=== PATIENT | female | born 1980 | race Caucasian/White ===

== ENCOUNTER 2020-06-30 17:10 | Emergency (ER) | payer OTHER, SELFPAY ==
--- NOTE | 2020-06-30 17:20 | ED.GENADULT ---
HPI - General Adult General Chief complaint: Dental/Oral Stated complaint: Dental Time Seen by Provider: 06/30/20 17:20 Source: patient Mode of arrival: ambulatory Limitations: no limitations History of Present Illness HPI narrative: 39-year-old female patient presents to the [facility] with complaints of swelling to the right cheek for the past several days. Patient states she went to [facility] ER yesterday and was given penicillin VK antibiotics. Patient states that she is taken about 3 doses of this but states that the swelling continues to worsen. Patient does take hydrocodone chronically for a chronic back issue which she has been taking for pain as well. Patient states that the cheek also feels kind of warm but she has been using ice packs to it quite often. Patient denies any fevers or body aches that she is aware of. Related Data Home Medications Medication Instructions Recorded Confirmed hydrocodone-acetaminophen 10 mg PO QID 06/30/20 06/30/20 liraglutide [Victoza 2-Isaías] 1.2 mg SUBCUT DAILY 06/30/20 06/30/20 lisinopril 2.5 mg PO DAILY 06/30/20 06/30/20 metformin 1,000 mg PO BID 06/30/20 06/30/20 penicillin V potassium 500 mg PO Q8H 06/30/20 06/30/20 Allergies Allergy/AdvReac Type Severity Reaction Status Date / Time morphine Allergy Hallucinati Verified 06/30/20 17:35 ng Review of Systems Review of Systems: Narrative: CONSTITUTIONAL: Denies fever, chills, or sweats. EYES: Denies visual changes, redness, or discharge. ENT: Denies rhinorrhea, congestion, sore throat, or otalgia. Positive swelling to right cheek CARDIOVASCULAR: Denies chest pain, palpitations, or edema. RESPIRATORY: Denies cough or dyspnea. GASTROINTESTINAL: Denies abdominal pain, nausea, vomiting, or diarrhea. GENITOURINARY: Denies dysuria or hematuria. SKIN: Denies rash or itching. MUSCULOSKELETAL: Denies back pain, joint pain, or myalgia. NEUROLOGIC: Denies headache, numbness, or weakness. PSYCHIATRIC: Denies anxiety or depression. [facility], [facility] Surgical History Surgical History (Updated 06/30/20 @ 17:22 by ANIKA Sosa) H/O Spinal surgery Lower back History of X2 History of orthopedic surgery Cyst right wrist History of tubal ligation Social History Social History (Updated 06/30/20 @ 17:22 by ANIKA Sosa) Smoking status: Current every day smoker Comments At the time of my signature I agree with nursing past medical history, surgical, social, and family history. There is no relevant family history pertinent to the presenting complaint. Exam Narrative: Exam Narrative: GENERAL: Well-appearing, well-nourished, and in no acute distress. HEAD: Normocephalic, atraumatic. EYES: PERRLA and EOMI. ENT: Nares clear, no rhinorrhea or epistaxis. Mucous membranes moist. Patient has significant swelling to the right cheek along with some warmth noted on palpation. Patient is very tender. There is some erythema noted to the right cheek as compared to the left cheek. I do not see any obvious dental caries or dental infections on exam however it is hard to see the back molar due to the swelling. Patient does have significant swelling to the inner the swelling on the outside does extend up to right under the right eye but does not encircle the entire right eye. There is no obvious drainable abscess that I can visualize but possibly 1 is palpated deep in the cheek. NECK: Supple. No lymphadenopathy CHEST: Clear to auscultation. No respiratory distress. HEART: Regular rate and rhythm. No murmur heard. Normal peripheral pulses. ABDOMEN: Soft, nontender, nondistended, normal active bowel sounds. EXTREMITIES: Normal range of motion. No edema. SKIN: Warm, dry, no rash. NEURO: No focal deficits. Alert and oriented x3. Course Vital Signs Vital signs: Vital Signs Temperature 36.1 C L 06/30/20 17:24 Pulse Rate 90 06/30/20 17:24 Respiratory Rate 18 06/30/20 17:24 Blood Pressure 157/91 H 06/30/20 17:24
[2020-06-30 17:24] VITALS: BP 157/91; PULSE 90; RESP 18; TEMP 36.1; O2SAT 100
[2020-06-30 17:39] VITALS: BP 157/91; PULSE 90; RESP 18; TEMP 36.1; O2SAT 100
== END 2020-06-30 17:43 | disposition short-term general hospital (02) ==
PROVIDERS: Emergency Provider Nurse Practitioner Family; PCP Internal Medicine
DX: K04.7 Periapical abscess without sinus (principal); R22.0 Localized swelling, mass and lump, head; F17.200 Nicotine dependence, unspecified, uncomplicated; I10 Essential (primary) hypertension; E11.9 Type 2 diabetes mellitus without complications
CPT/HCPCS: 99212; G0463

== ENCOUNTER 2020-06-30 18:41 | Emergency (ER) | payer OTHER, SELFPAY ==
[2020-06-30 19:00] VITALS: BP 170/88; PULSE 89; RESP 18; TEMP 36.2; O2SAT 100
--- NOTE | 2020-06-30 20:20 | ED.GENADULT ---
HPI - General Adult General Chief complaint: Unspecified Stated complaint: facial swelling Time Seen by Provider: 06/30/20 19:32 Source: patient Mode of arrival: ambulatory Limitations: no limitations History of Present Illness HPI narrative: Patient is a 39-year-old female complaining of right-sided facial redness and swelling that started earlier this morning. Patient states that she was also having dental pain. Patient went to an urgent care today and was given penicillin but patient states that the redness and swelling is not better and it is worse. Patient states that she only started taking her antibiotics today and has taken 3 doses so far. Patient denies any fever, lip swelling, tongue swelling, throat swelling, dysphagia, shortness of breath, fever or chills. Related Data Home Medications Medication Instructions Recorded Confirmed hydrocodone-acetaminophen 10 mg PO QID 06/30/20 06/30/20 liraglutide [Victoza 2-Isaías] 1.2 mg SUBCUT DAILY 06/30/20 06/30/20 lisinopril 2.5 mg PO DAILY 06/30/20 06/30/20 metformin 1,000 mg PO BID 06/30/20 06/30/20 penicillin V potassium 500 mg PO Q8H 06/30/20 06/30/20 Allergies Allergy/AdvReac Type Severity Reaction Status Date / Time morphine Allergy Hallucinati Verified 06/30/20 19:05 vi Review of Systems Review of Systems: All systems reviewed & are unremarkable except as noted in HPI and below Constitutional: Constitutional: Denies body ache(s), Denies chills, Denies excessive sweating, Denies fatigue, Denies fever(s), Denies headache(s), Denies lethargy, Denies malaise, Denies weakness and Denies weight loss Eyes: Eyes: Denies blurry vision, Denies change in vision and Denies loss of vision ENT: Denies dizziness, Denies ear discharge, Denies headache(s), Denies lip swelling, Denies epistaxis, Denies nasal congestion, Denies neck pain, Denies throat swelling and Denies tongue swelling Cardiovascular: Cardiovascular: Denies chest pain, Denies chest pain at rest, Denies chest pain with activity, Denies diaphoresis, Denies rapid heart rate, Denies edema, Denies irregular heart rhythm, Denies lightheadedness, Denies palpitations, Denies dyspnea and Denies dyspnea on exertion Respiratory: Respiratory: Denies chest congestion, Denies cough, Denies hemoptysis, Denies dyspnea and Denies dyspnea on exertion Gastrointestinal: Gastrointestinal: Denies abdominal pain, Denies melena, Denies hematochezia, Denies diarrhea, Denies nausea, Denies vomiting and Denies hematemesis Musculoskeletal: Musculoskeletal: Denies abnormal gait, Denies deformity, Denies joint swelling, Denies limited range of motion, Denies neck pain and Denies numbness Neurologic: Denies Abnormal speech present, Denies abnormal gait, Denies confusion, Denies dizziness, Denies headache(s), Denies focal weakness, Denies loss of vision, Denies numbness, Denies Other visual disturbances, Denies Sensory deficit (Neuro) and Denies weakness Psychiatric: Psychiatric: Denies confusion, Denies depression, Denies auditory hallucinations, Denies homicidal ideation and Denies suicidal ideation Endocrine: Endocrine: Denies cold intolerance, Denies excessive sweating, Denies fatigue, Denies heat intolerance and Denies palpitations Hematologic/Lymphatic: Hematologic/Lymphatic: Denies easy bleeding and Denies easy bruising Allergic/Immunologic: Allergic/Immunologic: Denies lip swelling, Denies throat swelling and Denies tongue swelling PMFSH Surgical History Surgical History (Updated 06/30/20 @ 17:22 by ANIKA Sosa) H/O Spinal surgery Lower back History of X2 History of orthopedic surgery Cyst right wrist History of tubal ligation Social History Social History (Updated 06/30/20 @ 17:22 by ANIKA Sosa) Smoking status: Current every day smoker Gender identity (if verbalized by the patient): Female Exam Const: General: cooperative, healthy appearing, comfortable, no acute distress, well devel
[2020-06-30 20:50] VITALS: BP 161/79; PULSE 72; RESP 18; O2SAT 98
== END 2020-06-30 20:50 | disposition home or self-care (01) ==
PROVIDERS: Emergency Provider Emergency Medicine; PCP Internal Medicine
DX: L03.211 Cellulitis of face (principal); K08.89 Other specified disorders of teeth and supporting structures; Z79.01 Long term (current) use of anticoagulants; F17.200 Nicotine dependence, unspecified, uncomplicated
CPT/HCPCS: 96372; 99283

== ENCOUNTER 2025-05-27 15:17 | Emergency (ER) | payer OTHER, SELFPAY ==
--- NOTE | 2025-05-27 15:27 | ED.GENADULT ---
HPI - General Adult General Chief complaint: Dental/Oral Stated complaint: ?strep / tooth ache Time Seen by Provider: 05/27/25 15:30 Source: patient, RN notes reviewed and old records reviewed Mode of arrival: ambulatory Limitations: no limitations History of Present Illness HPI narrative: 44-year-old female presents to the [facility] with concerns of a tooth infection to the right lower. History of multiple infections in that area. Patient has seen [facility] in the past As well as [facility]. States that she needs an oral surgeon. Patient was also concern for strep due to exposure but has no symptoms. Onset (ago): day(s) Related Data Home Medications ?Medication ?Instructions ?Recorded ?Confirmed ?Last Taken ?Type Humalog U-100 Insulin 05/27/25 Unknown History Allergies Allergy/AdvReac Type Severity Reaction Status Date / Time morphine Allergy Hallucinati Verified 05/27/25 15:29 ng Review of Systems Review of Systems: All systems reviewed & are unremarkable except as noted in HPI and below Constitutional: Constitutional: Reports no additional constitutional complaints ENT: Reports as per HPI and Reports dental pain Cardiovascular: Cardiovascular: Reports no additional cardiovascular complaints, Denies chest pain and Denies dyspnea Respiratory: Respiratory: Reports no additional respiratory complaints, Denies chest congestion, Denies cough and Denies dyspnea Musculoskeletal: Musculoskeletal: Reports no additional musculoskeletal complaints Integumentary/Breasts: Skin/Breast: Reports system reviewed and no additional complaints, except as docu PMFSH Surgical History Surgical History (Updated 06/30/20 @ 17:22 by Silva Dove, SHERIDAN) H/O Spinal surgery Lower back History of orthopedic surgery Cyst right wrist History of X2 History of tubal ligation Social History Social History (Updated 06/30/20 @ 17:22 by Silva Dove, [employer]) Smoking status: Current every day smoker Gender identity (if verbalized by the patient): Female Comments At the time of my signature, I reviewed and agree with the nursing past medical, surgical, social, and family history. There is no relevant family history pertinent to the patient complaint. Exam Const: General: cooperative, healthy appearing, comfortable, no acute distress, well developed, alert and well nourished Nutritional Appearance: well nourished Orientation/consciousness: patient oriented x3 Limitations: no limitations HENMT: Head: normal to inspection Ears: hearing grossly normal bilaterally, external ears normal, TM's normal bilaterally, EAC's normal, mastoids normal and no periauricular adenopathy Mouth: Yes Normal oral and palatal mucosa present, Yes lip normal, Yes tongue normal and Yes moist mucous membranes Teeth and gingiva: abnormal tooth and associated gingiva lower right tender, with associated gingival edema and other ( Dental decay of the molar) and poor dentition Throat: posterior oropharynx normal, uvula midline and no uvular edema Eyes: General: appearance normal, both eyes and all related structures Alignment and Position: alignment normal Neck: Neck: normal visual inspection, full ROM, no lymphadenopathy and no meningeal signs Chest: Chest palpation & inspection: normal inspection of the chest Resp: Effort & Inspection: normal respiratory effort and able to speak in complete sentences Auscultation: clear to auscultation bilaterally, no crackles, no rales, no rhonchi and no wheezes Cardio: Rate: regular rate Skin: General skin exam: normal color and no rashes or lesions noted Neuro: General: patient oriented x3, gait normal, moves all extremities and no meningeal signs Cognition (Neuro): normal cognition Speech: normal speech Gait exam (Neuro): Normal gait present Extrem: General: normal to inspection, full ROM, capillary refill normal and normal gait Psych: Appearance: grossly normal and well kempt Mental Status: mental status grossly normal Speech and movement: Normal speech and movement present and Clear speech present Affect: normal affect Attitude: cooperative Course Course Level of Care: Express Care Visit Vital Signs Vital signs: Vital Signs Temperature 97.4 F L 05/27/25 15:31 Pulse Rate 60 05/27/25 15:31 Respiratory Rate 18 05/27/25 15:31 Blood Pressure 134/73 05/27/25 15:31 Pulse Oximetry 100 05/27/25 15:31 Oxygen Delivery Room Air 05/27/25 15:31 Temperature 97.4 F L 05/27/25 15:31 Pulse Rate 60 05/27/25 15:31 Respiratory Rate 18 05/27/25 15:31 Blood Pressure 134/73 05/27/25 15:31 Pulse Oximetry 100 05/27/25 15:31 Oxygen Delivery Room Air 05/27/25 15:31 Reviewed Medical Decision Making MDM Narrative Medical decision making narrative: patient sitting comfortably in exam room. Patient is nontoxic, vitals are stable. Patient presents with couple days history of dental swelling, redness and pain. Patient has a history of dental abscess with cellulitic changes. Has seen dentist in the past and has not had the tooth removed. Patient was concerned she might have strep with no symptoms due to exposure. offered testing, patient declined due to the antibiotic that was prescribed for the dental would also cover strep. Discussed getting a new toothbrush as well as taking Motrin and Tylenol stressing the importance of following up with dental provider patient appropriate for outpatient treatment with close follow-up Discharge instructions reviewed with patient, as well as provided in writing per nursing staff. The instructions also include specific and strict return/GO TO THE ER as well as f/u information. All questions have been answered, and the patient deny any further questions with discharge and discharge plan. Some parts of this dictation were generated by voice recognition software and may contain typographical and/or grammatical inaccuracies. Differential Diagnosis Differential Diagnosis: dental abscess, dental decay Medical Records Medical records reviewed: Yes I reviewed the external patient's medical records. Vital Signs Vital Signs: Vital Signs Temperature 97.4 F L 05/27/25 15:31 Pulse Rate 60 05/27/25 15:31 Respiratory Rate 18 05/27/25 15:31 Blood Pressure 134/73 05/27/25 15:31 Pulse Oximetry 100 05/27/25 15:31 Oxygen Delivery Room Air 05/27/25 15:31 Temperature 97.4 F L 05/27/25 15:31 Pulse Rate 60 05/27/25 15:31 Respiratory Rate 18 05/27/25 15:31 Blood Pressure 134/73 05/27/25 15:31 Pulse Oximetry 100 05/27/25 15:31 Oxygen Delivery Room Air 05/27/25 15:31 Reviewed Lab Data Lab results reviewed: Yes I reviewed the patient's lab results. Labs: Reviewed Critical Care Time Critical Care Time Critical Care Time: No Discharge Plan Discharge Clinical Impression: Dental abscess, Dental infection Patient Disposition: Home Condition: Stable Instructions: Antibiotic Form, Dental Abscess (ED) Additional Instructions: Finish the entire course of antibiotics brush teeth and use mouthwash 1-2 times daily After every time you eat be sure to use salt water rinses. Apply ice to face to help with pain. Take Tylenol alternating with Motrin as needed for pain. You can alternate every 4 hours You need to follow-up with a dental provider as soon as possible for further evaluation and treatment. A list of dental providers has been given to you Follow up with a Primary Care Provider (PCP) about medical needs. A PCP can help keep you healthy by preventive medicine and screening. Go to the ER for New or worsening symptoms. Patient Language: Maori Prescriptions: New amoxicillin-pot clavulanate 875-125 mg tablet 1 tablet PO Q12H Qty: 20 0RF No Action Humalog U-100 Insulin Follow-up/Referrals: Michelle,Nilsa Crawford, [employer] [Primary Care Provider, Unknown] - 2 Weeks Stand Alone Forms: Work/School Release IP Time of Disposition: 15:42
[2025-05-27 15:31] VITALS: BP 134/73; PULSE 60; RESP 18; TEMP 36.3; O2SAT 100
--- OUTSIDE RECORDS SUMMARY | 2025-05-27 15:34 | XMS_ITS | Clinical Summary ---
Author Organization [facility] Address [address] [place] [address] Care Team Providers Care Fire Controlman Name Role Phone Nilsa Martinez ASSOCIATE EMBALMER/FUNERAL DIRECTOR Primary Care Provider Allergies Active Allergy Reactions Criticality Noted Date Comments Regan Inhibitors Cough Low 02/13/2022 Empagliflozin Itching Low 01/20/2024 Sumatriptan Other (See comments) High 11/09/2016 Heart racing shortness of breath Morphine Itching Low 07/30/2017 Medications mupirocin (BACTROBAN) 2 % ointment Apply topically 3 (three) times a day. 22 g 8 Active Freestyle InsuLinx strip Test daily before all meals/snacks and once before bedtime. 3 each 0 Active lancets (freestyle) 28 gauge misc Test daily before all meals/snacks and once before bedtime. 3 each 0 Active blood-glucose meter (Freestyle InsuLinx) misc Test daily before all meals/snacks and once before bedtime. 1 each 0 Active pravastatin (PRAVACHOL) 20 mg tablet TAKE 1 TABLET EVERY DAY BY ORAL ROUTE AT DINNER. 1 Active Levemir FlexPen 100 unit/mL (3 mL) pen for injection 3 Active famotidine (PEPCID) 40 mg tablet Take 1 tablet (40 mg total) by mouth daily 30 tablet 11 4 Active cholecalciferol 25 mcg (1,000 unit) tablet Take 1 tablet (1,000 Units total) by mouth daily 2 Active cetirizine (ZyrTEC) 10 mg tablet 4 Active ezetimibe (ZETIA) 10 mg tablet Take 1 tablet every day by oral route at dinner. Active pancrelipase (Zenpep) 40,000-126,000- 168,000 unit per capsuleIndication s:exocrine pancreatic insufficiency Take 1 capsule by mouth 2 (two) times a day with meals 180 capsule 4 Active blood-glucose sensor (Dexcom G7 Sensor) device Use for BG monitoring 3 each 4 Active insulin lispro (HumaLOG, ADMELOG) 100 unit/mL pen for injection Take before meals For sugars under 120, none 121-160, take 2 units 161-200, take 3 units 201-240, take 4 units 241-280 , take 5 units Over 281, take 6 units 15 mL 6 4 Active TRUEplus Pen Needle 31 gauge x 5/16 needleIndications :Type 2 diabetes mellitus with hyperglycemia, with long-term current use of insulin (HCC) USE DIRECTED 100 each 5 Active Active Problems Problem Noted Date Diagnosed Date Hyperlipidemia associated with type 2 diabetes m ivethitus 07/08/2024 Type 2 diabetes mellitus wit h hyperglycemia, with long-term current use of insulin 03/24/2024 Assessment & Plan (03/24/2024 5:15 PM CDT): Hba1c was Lab Results Component Value Date HGBA1C 7.8 03/24/2024 today, indicating inadequate DM control Goal Hba1c under 7 and blood glucose level in the 120-160 range was explained Low carb diet and daily aerobic and /or resistant exercise were advised Prevention and treatment of hyypoglcyemia were discussed with the patient Blood glucose monitoring : Start CGM with Dexcom Adjustment to medications: Stay on Levemir, 20 units in the evening Start Novolog before meals, as follows For sugars under 120, none 121-160, take 2 units 161-200, take 3 units 201-240, take 4 units 241-280 , take 5 units Over 281, take 6 units Thyroid nodule 03/24/2024 Assessment & Plan (03/24/2024 5:14 PM CDT): Scheduled for FNA Diarrhea 07/31/2023 RUQ abdominal pain 07/31/2023 Family history of colon cancer 07/31/2023 Indigestion 07/31/2023 Decreased appetite 07/31/2023 Weight loss 07/31/2023 Superficial foreign body of right great toe 03/30 Lumbar radiculopathy 01/03/2009 Immunizations Immunization Administration Dates Next Due Tdap 04/17/2018 Surgical History Surgery Date Site/Laterality Comments SECTION x2 TONSILLECTOMY Tonsillectomy TUBAL LIGATION COLONOSCOPY 6-7 years ago COLONOSCOPY 10/22/2023 Medical History Medical History Date Comments Hx Other Medical heart failure; Comments: [facility] 10/28/2015 - Hx Other Medical Headache, migra ine Asthma as a child GERD (gastroesophageal reflux disease) rarely Anemia Anemia; Comments : [facility] 10/28/2015 - CHF (congestive heart failure) (HCC) Diabetes mellitus Family History Medical History Relation Name Comments Breast cancer Cousin Colon cancer Maternal Grandfather Breast cancer Maternal Grandmother Breast cancer Mother Colon cancer Mother's Brother Stomach cancer Mother's Brother Cancer Other 1 Family history of Cancer, unknown; Diabetes type II Other 2 Family hist ory of Diabetes mellitus type 2; Arthritis Other 3 Family history of Arthritis; Heart failure Other 4 Family history of Congestive heart failure; Hypertension Other 5 Family history of Hypertension; Mental illness Other 6 Family histor y of Mental illness; Breast cancer Sister Relation Name Status Comments Cousin Maternal Grandfather Maternal Grandmother Mother Mother's Brother Other 1 Other 2 Other 3 Other 4 Other 5 Other 6 Sister Social History Tobacco Use Types Packs/Day Years Used Date Smoking Tobacco: Every Day Smokeless Tobacco: Never Tobacco Cessation:Ready to Q uit: Not Asked; Counseling Given: Not Answered Alcohol Use Standard Drinks/Week Comments Not Currently 0 (1 standard drink = 0.6 oz pur e alcohol) AUDIT-C Answer Date Recorded Q1: How often do you have a drink containing alcohol? Never 03/24/2024 Q2: How many drinks containi ng alcohol do you have on a typical day when you are drinking? Patient does not drink Q3: How often do you have si x or more drinks on one occasion? Never 03/24/2024 PHQ-2 Answer Date Recorded PHQ-2 Total Score (If total score is 3 or more points, staff should administer the PHQ-9) 0 03/24/2024 Personal Safety Answer Date Recorded Have you ever been in or are you currently in a harmful physical or emotional relationship or is someone making you feel afraid or unsafe? Denies 05/02/2024 Comments No Sex and Gender Information Value Date Recorded Sex Assigned at Not on file Legal Sex Female 5:01 PM BLUEPRINT PROCESSOR Gender Identity Female 07/31/2022 2:24 PM BLUEPRINT PROCESSOR Sexual Orientation Straight 07/31/2022 2: 24 PM BLUEPRINT PROCESSOR Obstetrics History Para Term AB IAB SAB Ectopic Multiple Livin g Live Births 3 2 2 Date Outcome GA Total Labor Labor/2nd/3rd Weight Sex Type Anes PTL Sharona A1 A5 Name Clin Term Term Last Filed Vital Signs Vital Sign Reading Time Taken Comments Blood Pressure 136/80 01/04/2025 9:29 AM CDT Pulse 47 01/04/2025 9:29 AM CDT Temperature 36.9 C (98.4 F) 05/02/2024 5:51 AM CDT Respiratory Rate 20 05/02/2024 5:51 AM CDT Oxygen Saturation 100% 07/01/2024 8:56 AM BLUEPRINT PROCESSOR Inhaled Oxygen Concentration - - Weight 92.5 kg (204 lb) 01/04/2025 9:29 AM CDT Height 162.6 cm (5' 4) 01/04/2025 9:29 AM CDT Body Mass Index 35.02 01/04/2025 9:29 AM CDT Plan of Treatment Health Maintenance Due Date Last Done Comments Albumin Creatinine Ratio, Urine 1981 Dilated Eye Exam 1981 Foot Exam 1981 Varicella Vaccines (1 of 2 - 13+ 2-dose series) 1994 Hepatitis B Screening 12/17/1999 Regular Well Visit/Exam 18-64 12/17/1999 Pneumococcal vaccine <65 (1 of 2 - PCV) 2000 HPV Vaccines (1 - 3-dose SCD M series) 2008 eGFR 07/31/2024 07/31/2023, 04/28, 07/14/2021, Additional history exists Hemoglobin A1C 09/24/2024 03/24/2024 Depression Screening 03/24/2025 03/24/2024 Covid-19 Vaccine (2024-2 6 season) 2025 06/16/2021, 11/11/2020, 10/14/2020 Influenza Vaccine (#1) 2025 Lipid Panel 07/01/2025 07/01/2024 Breast Cancer Screening-Mammogram 09/29/2025 09/29/2024, 09/05/2023, 12/20/2022 DTaP/Tdap/Td Vaccine (2 - Td or Tdap) 04/17/2028 04/17/2018 Hepatitis C Screening Completed 07/01/2024 Procedures Procedure Name Priority Date/Time Associated Diagnosis Comments DIAGNOSTIC MAMMOGRAM BILATERAL W ANGEL Schedule Routine, Read Routine (OP Routine) 09/29/2024 2:02 PM BLUEPRINT PROCESSOR Oth abn and inconclusive findings on dx imaging of breast HEPATITIS C ANTIBODY Routine 07/01/2024 9:00 AM BLUEPRINT PROCESSOR Elevated erythrocyte sedimentation rate LIPID PANEL Routine 07/01/2024 9:00 AM BLUEPRINT PROCESSOR Elevated erythrocyte sedimentation rate POCT HEMOGLOBIN A1C Routine 03/24/2024 2:47 PM CDT Type 2 diabetes mellitus with hyperglycemia, with long-term current use of insulin (HCC) EGFR Routine 07/31/2023 2:29 PM BLUEPRINT PROCESSOR Weight loss from Last 3 Months or Most Recently Relevant to Health Maintenance Results * Diagnostic Mammogram Bilateral W Angel (09/29/2024 2:02 PM BLUEPRINT PROCESSOR) Anatomical Region Laterality Modality Breast Bilateral Mammography 09/29/2024 2:23 PM BLUEPRINT PROCESSOR Impressions 09/29/2024 2:23 PM BLUEPRINT PROCESSOR The focal asymmetries in both breasts are stable and are now considered benign. There is no mammographic or sonographic evidence of malignancy. Follow-up in 1 year with screening mammography is recommended. BI-RADS: 2 - Benign. The patient has been or will be contacted. The patient will be entered into a reminder system with a target due date of 1 year for her next mammogram. Electronically signed by: Dimas Lorenzo M.D. Narrative 09/29/2024 2:23 PM BLUEPRINT PROCESSOR EXAMINATION: DIAGNOSTIC MAMMOGRAM BILATERAL W ANGEL ORDERING HEALTHCARE PROVIDER: PROVIDER TRANSCRIBED ORDER HISTORY: Follow-up probably benign focal asymmetries in both breasts. COMPARISON: 09/05/2023, 12/20/2022 TECHNIQUE: CC and MLO routine views of the Bilateral breasts were obtained with digital technique using breast tomosynthesis with C view. Computer aided detection was utilized. FINDINGS: There are scattered areas of fibroglandular density. The previously seen focal asymmetry in the upper inner aspect of the right breast anteriorly and the focal asymmetry in the slightly lateral left breast at the 3 o'clock position, middle depth appear stable. No sonographic lesions were seen previously. These demonstrate approximate two-year stability and are now considered benign. There are no suspicious masses, calcifications, or architectural distortion in either breast. There is no significant change. us Provider Transcribed Order IMG MAMMO PROCEDURES Final Result * Hepatitis C antibody Blood (07/01/2024 9:00 AM BLUEPRINT PROCESSOR) Hep C Ab Nonreactive Nonreactive Comment: Interpretive Data Nonreactive: Antibodies to HCV not detected. Does NOT exclude the possibility of recent exposure to HCV. Equivocal: Equivocal for HCV antibodies. Supplemental molecular testing will be automatically performed to determine infection status in accordance with current CDC screening recommendations. Reactive: Positive for HCV antibodies. This may represent current or past HCV infection. Supplemental molecular testing will be automatically performed to determine current infection status in accordance with current CDC screening recommendations. Interpretive data was last revised on 2019. Blood 07/01/2024 9:00 AM BLUEPRINT PROCESSOR 07/01/2024 3:38 PM BLUEPRINT PROCESSOR Shahla Moralez MD [facility] Final Result MIKE [id number] Department [place] [address] * (ABNORMAL) Lipid panel (07/01/2024 9:00 AM BLUEPRINT PROCESSOR) Cholesterol 230(H) 30 - 199 mg/dL Comment: Interpretive Data Ages < or = 19 years Acceptable: <170 mg/dL Borderline high: 170-199 mg/dL High: >or= 200 mg/dL Ages > or = 20 years Desirable: <200 mg/dL Borderline high: 200-239 mg/dL High: >or= 240 mg/dL Literature References: 1. Expert Panel on Integrated Guidelines for Cardiovascular Health and Risk Reduction in Children and Adolescents. Pediatrics 2011;128:S213 2. NCEP Expert Panel. Circulation 2004;110:227 Current Interpretive Data was last revised on 2018. Triglycerides 120 <=149 mg/dL MIKE VARGAS Comment: Interpretive Data Ages < or = 9 years Acceptable: <75 mg/dL Borderline high: 75-99 mg/dL High: >or= 100 mg/dL Ages 10 to 20 years Acceptable: <90 mg/dL Borderline high: 90-129 mg/dL High: >or= 130 mg/dL Ages > or = 20 years Desirable: <150 mg/dL Borderline high: 150-199 mg/dL High: 200-499 mg/dL Very high: >or= 499 mg/dL Literature References: 1. Expert Panel on Integrated Guidelines for Cardiovascular Health and Risk Reduction in Children and Adolescents. Pediatrics 2011;128:S213 2. NCEP Expert Panel. Circulation 2004;110:227 Current Interpretive Data was last revised on 2018. HDL 45 >=40 mg/dL MIKE VARGAS Comment: Interpretive Data Ages < or = 19 years Acceptable: >45 mg/dL Borderline low: 40-45 mg/dL Low: <40 mg/dL Ages > or = 20 years Desirable: >or= 60 mg/dL Low: <40 mg/dL Literature References: 1. Expert Panel on Integrated Guidelines for Cardiovascular Health and Risk Reduction in Children and Adolescents. Pediatrics 2011;128:S213 2. NCEP Expert Panel. Circulation 2004;110:227 Current Interpretive Data was last revised on 2018. LDL, calculated 163(H) <=129 mg/dL MIKE VARGAS Comment: Interpretive Data Ages < or = 19 years Acceptable: <110 mg/dL Borderline high: 110-129 mg/dL High: >or= 130 mg/dL Ages > or = 20 years Optimal: <100 mg/dL Near optimal: 100-129 mg/dL Borderline high: 130-159 mg/dL High: >160 mg/dL Calculated using the Stern LDL-C estimating equation. This equation was implemented on 2024. Prior to this date LDL-C was estimated using the Friedewald equation. Literature References: 1. Expert Panel on Integrated Guidelines for Cardiovascular Health and Risk Reduction in Children and Adolescents. Pediatrics 2011;128:S213 2. NCEP Expert Panel. Circulation 2004;110:227 3. Jarred M et al. BRENT Cardiol. 2019November 26;5(5):540-548. doi: [email or web address] Current Interpretive Data was last revised on 2024. Non-HDL Cholesterol 185 mg/dL MIKE VARGAS Comment: Interpretive Data Ages < or = 19 years Acceptable: <120 mg/dL Borderline high: 120-144 mg/dL High: >145 mg/dL Ages > or = 20 years When triglycerides are >200 mg/dL, Non-HDL cholesterol is a secondary target of therapy with treatment goals that are 30 mg/dL greater than the LDL cholesterol target. Literature References: 1. Expert Panel on Integrated Guidelines for Cardiovascular Health and Risk Reduction in Children and Adolescents. Pediatrics 2011;128:S213 2. NCEP Expert Panel. Circulation 2004;110:227 Current Interpretive Data was last revised on 2018. Chol/HDL ratio 5 MIKE VARGSA Blood 07/01/2024 9:00 AM BLUEPRINT PROCESSOR 07/01/2024 3:38 PM BLUEPRINT PROCESSOR Narrative MIKE VARGAS - 07/01/2024 4:33 PM BLUEPRINT PROCESSOR Has the patient been fasting for 8 hours or more?->No Shahla Moralez MD LAB BLOOD ORDERABLES Final Result MIKE VARGAS [id number] Department [place] [address] * (ABNORMAL) POCT hemoglobin A1c (03/24/2024 2:47 PM CDT) Hemoglobin A1C, POC 7.8 4.0 - 5.6 % Comment:none Capillary blood 03/24/2024 2 :47 PM CDT Reid Chavez MD POINT OF CARE TEST ORDERABLES Fi nal Result * eGFR (07/31/2023 2:29 PM BLUEPRINT PROCESSOR) eGFR 123 mL/min/1. 73 m2 MIKE DOE (MCADOO) Comment: Interpretive Data Reference Interval Normal >/= 90 mL/min/1.73m2 Mildly decreased* 60 - 89 mL/min/1.73m2 Mildly to moderately decreased 45 - 59 mL/min/1.73m2 Moderately to severely decreased 30 - 44 mL/min/1.73m2 Severely decreased 15 - 29 mL/min/1.73m2 Kidney Failure < 15 mL/min/1.73m2 *Relative to young adult level Estimated glomerular filtration rate is determined by the 2020 CKD-EPI equation recommended by the National Kidney Foundation (A Unifying Approach to GFR Estimation: Recommendations of the NKF-ASK Task Force on Reassessing the Inclusion of Race in Diagnosing Kidney Disease, JASN 2020). The CKD-EPI equation should not be used for patients with unstable renal function and has not been validated in children and those over 70. Current interpretive data was last reviewed 2021. Blood 07/31/2023 2:29 PM BLUEPRINT PROCESSOR 07/31/2023 4:02 PM BLUEPRINT PROCESSOR Lisa LITTLE LAB BLOOD ORDERABLES [facility] al Result MIKE DOE (MCADOO) [address] [facility] Department [place] [address] from Last 3 Months or Most Recently Relevant to Health Maintenance Insurance [facility] Advance Directives For more information, please contact: [phone] * Full Code (Latest Code Status on File) Date Activated Date Inactivated Comments 10/22/2023 11:17 AM 10/22/2023 6:50 PM * Full Code Date Activated Date Inactivated Comments 10/22/2023 11:17 AM 10/22/2023 11:17 AM * Full Code Date Activated Date Inactivated Comments 08/17/2017 9:57 AM 08/17/2017 12:51 PM Care Teams Fire Controlman Relationship Specialty Start Date End Date Nilsa Martinez NP PCP - General Nurse Practitioner 01/20/24
--- OUTSIDE RECORDS SUMMARY | 2025-05-27 15:34 | XMS_ITS | Clinical Summary ---
Author Organization [facility] Address [address] [place] [address] Phone Care Team Providers Care Helper Driver Name Role Phone Alcira Washington MD Primary Care Provider Allergies Active Allergy Reactions Criticality Noted Date Comments Sumatriptan Anaphylaxis 11/09/2016 Morphine Itching 07/30/2017 Medications HYDROcodone-hubert taminophen (NORCO) 10-325 MG Tablet Take 1 Tab by mouth every 6 hours as needed for Pain. Active azithromycin (ZITHROMAX Z-TAMMY) 250 MG Tablet 2 tab(s) daily for 1 day, then 1 tab(s) daily for days 2-5. 6 Tab 0 6 Active methylPREDNISol one (MEDROL DOSPACK) 4 MG Tablet Therapy Pack See product package insert for dosing schedule 21 Tab 0 6 Active ondansetron (ZOFRAN-ODT) 4 MG TABLET DISPERSIBLE Take 1 Tab by mouth every 8 hours as needed for Nausea. 12 Tab 0 7 Active methylPREDNISol one (MEDROL DOSPACK) 4 MG Tablet Therapy Pack See product package insert for dosing schedule 21 Tab 8 Active Cholecalciferol (VITAMIN D PO) Take by mouth. Active atorvastatin (LIPITOR) 40 MG Tablet Take 40 mg by mouth daily. Active celecoxib (CeleBREX) 200 MG Capsule Take 200 mg by mouth 2 times daily. Active pancrelipase, lipase-protease -amylase, (Creon) [address] Particles Take 1 Capsule by mouth 3 times daily (with meals). Active DULoxetine (CYMBALTA) [address] Particles Take 30 mg by mouth daily. Active famotidine (PEPCID) 20 MG Tablet Take 20 mg by mouth 2 times daily. Active glipiZIDE (GLUCOTROL) 5 MG Tablet Take 2.5 mg by mouth daily after breakfast. Active Empagliflozin (Jardiance) 10 MG Tablet Take 10 mg by mouth daily. Active insulin detemir (Levemir) 100 UNIT/ML Solution by Subcutaneous route nightly. Active losartan (COZAAR) 50 MG Tablet Take 50 mg by mouth daily. Active nortriptyline (PAMELOR) 10 MG Capsule Take 10 mg by mouth nightly. Active Social History Tobacco Use Types Packs/Day Years Used Date Smoking Tobacco: Every Day Cigarettes Smokeless Tobacco: Never Alcohol Use Standard Drinks/Week Comments No 0 (1 standard drink = 0.6 oz pur e alcohol) Comments No Sex and Gender Information Value Date Recorded Sex Assigned at Not on file Legal Sex Female 2:35 PM STAGE SETTING PAINTER APPRENTICE Gender Identity Not on file Sexual Orientation Not on file Last Filed Vital Signs Vital Sign Reading Time Taken Comments Blood Pressure 138/84 01/18/2022 1:31 AM CDT Pulse 87 01/18/2022 1:31 AM CDT Temperature 36.5 C (97.7 F) 01/17/2022 10:23 PM CDT Respiratory Rate 18 01/18/2022 1:31 AM CDT Oxygen Saturation 100% 01/18/2022 1:31 AM CDT Inhaled Oxygen Concentration - - Weight 122.5 kg (270 lb) 01/17/2022 10:23 PM CDT Height 162.6 cm (5' 4) 01/17/2022 10:23 PM CDT Body Mass Index 46.35 01/17/2022 10:23 PM CDT Plan of Treatment Health Maintenance Due Date Last Done Comments Hepatitis C Virus (HCV) Screening 1981 Mammogram 1981 Hepatitis B Immunization (1 of 3 - 19+ 3-dose series) 2000 Human Papillomavirus (HPV) Immunization (1 - 3-dose SCDM series) 2008 Discussion re Starting/Frequency of Mammograms 2021 Influenza Immunization (#1) 2025 SARS-COV-2 Immunization ( season) 2025 06/16/2021, 11/11/2020, 10/14/2020 Respiratory Syncytial Virus (RSV) Immunization (Adult) (1 - 1-dose 75+ series) 2056 DTaP/Tdap/Td Immunization Discontinued 04/17/2018 TdaP Immunization Completed 04/17/2018 Meningococcal Immunization (ACWY) Aged Out No longer eligible based on patient's age to complete this topic Pneumococcal Immunization Combined Aged Out No longer eligible based on patient's age to complete this topic Rotavirus Immunization Aged Out No lo nger eligible based on patient's age to complete this topic Insurance [employer] Care Teams Helper Driver Relationship Specialty Start Date End Date Alcira Washington MD PCP - General Internal Medicine 11/09/16
== END 2025-05-27 15:48 | disposition home or self-care (01) ==
PROVIDERS: Emergency Provider Nurse Practitioner; PCP Nurse Practitioner Family
DX: K04.7 Periapical abscess without sinus (principal); F17.200 Nicotine dependence, unspecified, uncomplicated
CPT/HCPCS: 99213; G0463

== ENCOUNTER 2025-06-10 18:16 | Emergency (ER) | payer OTHER, SELFPAY ==
--- OUTSIDE RECORDS SUMMARY | 2025-06-10 18:18 | XMS_ITS | Clinical Summary ---
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 Gender Identity Female 07/31/2022 2:24 PM GUNSTOCK [employer]AY [employer] FEEDER Sexual Orientation Straight 07/31/2022 2: 24 PM GUNSTOCK [employer]AY [employer] FEEDER Obstetrics History Para Term AB IAB SAB [...] CDT Oxygen Saturation 100% 07/01/2024 8:56 AM GUNSTOCK SPRAY [employer] FEEDER Inhaled Oxygen Concentration - - Weight 92.5 [...] Read Routine (OP Routine) 09/29/2024 2:02 PM G[employer]STOCK [employer] FEEDER Oth abn and inconclusive findings on dx imaging of breast HEPATITIS C ANTIBODY Routine 07/01/2024 9:00 AM GUNSTOCK SPRAY [employer] FEEDER Elevated erythrocyte sedimentation rate LIPID PANEL Routine 07/01/2024 9:00 AM G[employer]OCK [employer] FEEDER Elevated erythrocyte sedimentation rate POCT HEMOGLOBIN A1C Routine 03/24/2024 2:47 PM CDT Type 2 diabetes mellitus with hyperglycemia, with long-term current use of insulin (HCC) EGFR Routine 07/31/2023 2:29 PM G[employer]STOCK [employer] FE[employer]ER Weight loss from Last 3 Months or Most Recently Relevant to Health Maintenance Results * Diagnostic Mammogram Bilateral W Angel (09/29/2024 2:02 PM G[employer]STOCK [employer] FEEDER) Anatomical Region Laterality Modality Breast Bilateral Mammography 09/29/2024 2:23 PM GUNSTOCK [employer] FEEDER Impressions 09/29/2024 2:23 PM G[employer]STOCK [employer] FEEDER The focal asymmetries in both breasts are [...] Dimas Lorenzo M.D. Narrative 09/29/2024 2:23 PM G[employer]STOCK [employer] FEEDER EXAMINATION: DIAGNOSTIC MAMMOGRAM BILATERAL W ANGEL ORDERING [...] Hepatitis C antibody Blood (07/01/2024 9:00 AM GUNSTOCK SPRAY [employer] FEEDER) Hep C Ab Nonreactive Nonreactive Comment: Interpretive [...] revised on 2019. Blood 07/01/2024 9:00 AM G[employer]STOCK SPRAY UN[employer] FEEDER 07/01/2024 3:38 PM G[employer]STOCK [employer] FEEDER Shahla Moralez MD [facility] Final Result MIKE [id number] Department [place] [address] * (ABNORMAL) Lipid panel (07/01/2024 9:00 AM G[employer]STOCK SPRAY [employer] FEEDER) Cholesterol 230(H) 30 - 199 mg/dL Comment: [...] revised on 2018. Chol/HDL ratio 5 MIKE VARGAS Blood 07/01/2024 9:00 AM G[employer]OCK [employer] FE[employer]ER 07/01/2024 3:38 PM G[employer]STOCK [employer] FEEDER Narrative MIKE VARGAS - 07/01/2024 4:33 PM G[employer]OCK SPR[employer] FEEDER Has the patient been fasting for 8 hours or more?->No Shahla Moralez MD LAB BLOOD ORDERABLES Final Result MIKE VARGAS [id number] Department [place] [address] * (ABNORMAL) POCT hemoglobin A1c (03/24/2024 2:47 PM CDT) Hemoglobin A1C, POC 7.8 4.0 - 5.6 % Comment:none Capillary blood 03/24/2024 2 :47 PM CDT Reid Chavez MD POINT OF CARE TEST ORDERABLES Fi nal Result * eGFR (07/31/2023 2:29 PM G[employer]STOCK [employer]AY [employer] FEEDER) eGFR 123 mL/min/1. 73 m2 [facility]E ([place]) Comment: Interpretive Data Reference Interval Normal >/= [...] last reviewed 2021. Blood 07/31/2023 2:29 PM G[employer]STOCK [employer] FEEDER 07/31/2023 4:02 PM [employer]OCK [employer] FEEDER Lisa LITTLE LAB BLOOD ORDERABLES [facility] al Result MIKE DOE ([place]) [address] [facility] Department [place] [address] from Last 3 Months or Most Recently Relevant to Health Maintenance Insurance [facility] Advance Directives For more information, please contact: [phone] * Full Code (Latest Code Status on File) Date Activated Date Inactivated Comments 10/22/2023 11:17 AM 10/22/2023 6:50 PM * Full Code Date Activated Date Inactivated Comments 10/22/2023 11:17 AM 10/22/2023 11:17 AM * Full Code Date Activated Date Inactivated Comments 08/17/2017 9:57 AM 08/17/2017 12:51 PM Care Teams Turf Sales Person Relationship Specialty Start Date End Date Nilsa Martinez NP PCP - General Nurse Practitioner 01/20/24
--- OUTSIDE RECORDS SUMMARY | 2025-06-10 18:18 | XMS_ITS | Clinical Summary ---
Author Organization [facility] Address [address] [place] [address] Phone Care Team Providers Care Project Management Instructor Name Role Phone Alicra Washington MD Primary Care Provider Allergies Active [...] times daily. 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
[2025-06-10 18:24] VITALS: BP 137/61; PULSE 73; RESP 16; TEMP 36.6; O2SAT 99
--- NOTE | 2025-06-10 18:40 | ED_ITS ---
HPI - URI/Sore Throat General Chief Complaint: Upper Respiratory Infection Stated Complaint: Sinus Problem Time Seen by Provider: 06/10/25 18:28 Source: patient Mode of arrival: ambulatory Limitations: no limitations History of Present Illness HPI Narrative: Irene is a 44 year old female patient presenting to the clinic today with c/o right maxillary sinus pain. She reports symptoms started approx 5 days ago. R ecently finished Augmentin for a dental infection. States the right side of her face started swelling last night. Denies any fever, chills, or body aches. Related Data Home Medications ?Medication ?Instructions ?Recorded ?Confirmed ?Last Taken ?Type Humalog U-100 Insulin 05/27/25 Unknown History Allergies Allergy/AdvReac Type Severity Reaction Status Date / Time morphine Allergy Hallucinati Verified 06/10/25 18:25 ng Review of Systems Review of Systems: Pertinent positives per HPI. Patient denies any fever, chills, rash, headache, visual changes, dizziness, cough, shortness of breath, chest pain, palpitations, nausea, vomiting, diarrhea, constipation, abdominal pain, or any urinary issues. PMFSH Surgical History Surgical History H/O Spinal surgery Lower back History of orthopedic surgery Cyst right wrist History of X2 History of tubal ligation Social History Social History Smoking status: Current every day smoker Gender identity (if verbalized by the patient): Female Comments At the time of my signature, I reviewed and agree with the nursing past medical, surgical, social, and family history. There is no relevant family history pertinent to the patient complaint. Exam Narrative: General: Well-developed, well nourished, in no apparent distress Head: Normocephalic, atraumatic Eyes: Pupils equally round and reactive to light bilaterally, EOM intact, sclera and conjunctive clear, no discharge, lids normal Ears: TMs intact and clear, ear canals clear, no drainage, grossly hearing normal. Nose: Nares patent, no discharge, severe inflammation with dried blood in the right nare, right maxillary sinus tenderness. Mouth: Oral pharynx red without lesions or masses, poor dentition, MMM. PND Neck: Supple, trachea midline, no enlargement of anterior or posterior cervical nodes, no thyroid masses or goiter palpable. Cardio: Regular rate and rhythm, s1 and s2 normal, no murmur appreciated. Resp: Clear to auscultation bilaterally, no rhonchi, rales, wheezing or rubs Course Course Emergency Course: Portions of this record may have been created with voice recognition software. Level of Care: Express Care Visit Vital Signs Vital signs: Vital Signs Temperature 36.6 C 06/10/25 18:24 Pulse Rate 73 06/10/25 18:24 Respiratory Rate 16 06/10/25 18:24 Blood Pressure 137/61 06/10/25 18:24 Pulse Oximetry 99 06/10/25 18:24 Oxygen Delivery Room Air 06/10/25 18:24 Temperature 36.6 C 06/10/25 18:24 Pulse Rate 73 06/10/25 18:24 Respiratory Rate 16 06/10/25 18:24 Blood Pressure 137/61 06/10/25 18:24 Pulse Oximetry 99 06/10/25 18:24 Oxygen Delivery Room Air 06/10/25 18:24 Vital signs reviewed MDM - URI/Sore Throat MDM Narrative Medical decision making narrative: At the time of visit patient is resting comfortably on the exam table. Patient appears to be nontoxic. C/o right maxillary sinus pain. She reports symptoms started approx 5 days ago. Recently finished Augmentin for a dental infection. States the right side of her face started swelling last night. Denies any fever, chills, or body aches. n exam patient has bilateral TMs intact and c lear, nares patent, no discharge, severe inflammation with dried blood in the right nare, right maxillary sinus tenderness with palpable swelling, no palpable abscess, no dental pain, oral pharynx mildly red/postnasal drip, lung sounds are clear, heart rates regular rate and rhythm.. Plan: I suspect patient has right maxillary sinusitis. Prescription for clindamycin was sent to the pharmacy as patient recently has had Augmentin. Supportive measures were discussed with the patient and they voiced understanding discharge instructions and agrees to treatment plan. Return precautions reviewed Differential Diagnosis Differential diagnosis: Likely upper respiratory infection, otitis media, sinusitis, viral infection, bronchitis, influenza, pharyngitis and other (COVID, dental abscess, dental infection) Discharge Plan Discharge Clinical Impression: Right maxillary sinusitis Patient Disposition: Home Condition: Stable Instructions: Antibiotic Form, Rhinosinusitis (ED) Additional Instructions: Take prescription medications only as prescribed-clindamycin 450mg every 8 hours as prescribed. May take probiotics daily- 2 hours before or after taking the antibiotic dose. Increase fluids and stay well hydrated May take Tylenol or motrin as directed on bottle for pain/fever May take OTC antihistamines such as Zyrtec or Claritin daily as directed on bottle May apply Vicks vapor rub to chest to open sinuses Sinus rinses for congestion Go to the ED if you develop a worsening in your condition- high fever not controlled by Tylenol or Motrin, dehydration, weakness, lethargy, shortness of breath, or chest pain. Follow up with your PCP in 3-5 days if symptoms persist. Patient Language: Hungarian Prescriptions: New clindamycin HCl [Cleocin HCl] 300 mg capsule 300 mg PO Q8H 10 Days Qty: 30 0RF clindamycin HCl [Cleocin HCl] 150 mg capsule 150 mg PO Q8H 10 Days Qty: 30 0RF No Action Humalog U-100 Insulin Follow-up/Referrals: Michelle,Nilsa Crawford, SHOT CORE DRILL OPERATOR [Primary Care Provider, Unknown] Time of Disposition: 18:29 Quality NIHSS Nursing Documentation ED NIHSS nursing documentation: reviewed/agree
== END 2025-06-10 18:35 | disposition home or self-care (01) ==
PROVIDERS: Emergency Provider Nurse Practitioner Family; PCP Nurse Practitioner Family
DX: J32.0 Chronic maxillary sinusitis (principal); F17.200 Nicotine dependence, unspecified, uncomplicated
CPT/HCPCS: 99213; G0463